=== PATIENT | female | born 1975 | race Caucasian/White ===

== ENCOUNTER → 2019-01-10 | Outpatient (CLI) | payer OTHER | LOC: MHCPAIN 09:13 | DX: G89.29 Other chronic pain (principal); M47.817 Spondylosis without myelopathy or radiculopathy, lumbosacral region; M54.16 Radiculopathy, lumbar region; M53.3 Sacrococcygeal disorders, not elsewhere classified | CPT/HCPCS: G0463 ==

== ENCOUNTER → 2019-02-27 | Outpatient (CLI) | payer OTHER ==
[~2019-02-27] MED LIST: EFFEXOR-XR150 MG PO; INDERAL40 MG PO; PRILOSEC 20MG20 MG PO; PROAIR HFA0.09 MG/AC IH; TYLENOL 325MG325 MG PO
== END ==
LOC: MHCPAIN 02-02 08:05
DX: M51.27 Other intervertebral disc displacement, lumbosacral region (principal)
CPT/HCPCS: J1100; Q9967

== ENCOUNTER → 2019-03-14 | Outpatient (CLI) | payer OTHER | LOC: MHCPAIN 07:43 | DX: G89.29 Other chronic pain (principal); M54.16 Radiculopathy, lumbar region | CPT/HCPCS: G0463 ==

== ENCOUNTER 2019-03-17 12:52 | Inpatient (IN) | payer OTHER ==
[~2019-03-17] VITALS: Ht 172.7 cm; Wt 118.2 kg
[2019-04-12] VITALS (12 sets, daily range): BP systolic 127–148; BP diastolic 66–84; PULSE 84–99; TEMP 97.9–98.3
--- NOTE | 2019-04-12 10:35 | NUR ---
Pt arrived via ambulation with spouse. Pt brought CPAP from home. A&O. VSS-documented. Verbalized understanding of surgery, consent obtained. Assessment documented. IVF infusing to 20g in left hand. Side rails up. Call light in reach. Pts spouse and parents present in room. Denies questions or concerns.
[2019-04-12] MEDS ORDERED: INDERAL40 MG PO (11:00)
[2019-04-12] MEDS ORDERED: EFFEXOR-XR150 MG PO (11:01)
[2019-04-12] MEDS ORDERED: PRILOSEC 20MG20 MG PO (11:01)
[2019-04-12] MEDS ORDERED: PROAIR HFA0.09 MG/AC IH (11:02)
[2019-04-12] MEDS ORDERED: TYLENOL 325MG325 MG PO (11:03)
--- NOTE | 2019-04-12 11:27 | NUR ---
Pt updated on wait time received from April, [employer] MANAGER from Dr Cool. Pt denied needs or concerns. Family in room visiting.
--- NOTE | 2019-04-12 13:42 | NUR ---
Pt resting in bed with family present to visit. IVF running per orders to IV without redness or infiltration. Denies needs or complaints. Side rails up and call light in reach.
--- NOTE | 2019-04-12 14:05 | NUR ---
Pt taken via cart to OR by MILA Chen. Belongings to PACU as pt will not return to outpatient surgery unit.
--- NOTE | 2019-04-12 19:24 | NUR ---
Patient to room 348 post op. Report from pacu nurse. Patient family at bedside. Robotic lap site x5, bandaids x4 and gauze x1. Ivf. Tylenol per [facility]AS protocol. Scds ble. Vss on O2. Bedside report to Sintia Burroughs
--- NOTE | 2019-04-12 21:00 | NUR ---
Patient assisted to bathroom, gait steady, voids and has small loose stool at this time. IVF to left hand resumed. Denies nausea or pain at this time. Has 5 lap sites, D/I.
--- NOTE | 2019-04-13 00:30 | NUR ---
Pt has CPAP on. Denies concerns.
[2019-04-13 04:00] VITALS: BP 106/54; PULSE 91; TEMP 98
--- NOTE | 2019-04-13 04:33 | NUR ---
PATIENT ASSISTED TO BATHROOM, MEDICATED WITH TRAMADOL 100MG PO FOR PAIN 7/10 TO ABDOMEN. BACK TO BED WITH MILD SHORTNESS OF BREATH.
--- NOTE | 2019-04-13 06:30 | NUR ---
Up to chair at bedside. Reports good relief with Tramadol. Encouraged oral intake. IVF continue to left hand without redness or swelling.
[2019-04-13 07:07] LABS: HEMATOCRIT 39.6 % (37.0-47.0); HEMOGLOBIN 13.1 g/dl (12.5-16.0)
[2019-04-13 07:22] LABS: CALCIUM 8.9 mg/dL (8.4-10.2); CREATININE, serum 0.7 (0.52-1.25); MAGNESIUM 1.9 mg/dL (1.6-2.3); PHOSPHOROUS 3.9 mg/dL (2.5-4.5); POTASSIUM 3.8 mmol/L (3.4-5.0)
--- NOTE | 2019-04-13 08:00 | NUR ---
Patient in bed resting. Alert and oriented x 3. Shift assessment complete. States soreness to abdomen, lap sites with edges well approximated. Spouse at bedside. Fluids infusing per orders. Encouraged ambulation. Denies further needs at this time. States she did have a BM this AM, not bloody per patient.
[2019-04-13 08:26] VITALS: BP 113/60; PULSE 95; TEMP 98.7
--- NOTE | 2019-04-13 11:19 | NUR ---
MAO met with the patient and her , Javad (ph#[phone]), to discuss discharge plan. The patient lives in [place] with her and son. She reports independence with ADLs and has a CPAP. The patient's primary care provider is Linda Ritchie PA-C and she receives her medications at [facility]. She reports no difficulties obtaining her meds. The patient does not have advanced directives completed, but she was interested in obtaining a form for DPOA-HC. MAO provided. The patient plans to return home with her family upon discharge. No additional needs at this time.
[2019-04-13 12:57] VITALS: BP 119/56; PULSE 88; TEMP 97.8
--- NOTE | 2019-04-13 13:40 | NUR ---
Patient called out to nurses station requests pain medication for pain 5/10 after ambulating. Medications given per orders.
--- NOTE | 2019-04-13 15:40 | NUR ---
Contacted Dr. Bran, patient tolerating diet without difficulties, would like to go home. Discharge orders entered. Denies further needs.
--- NOTE | 2019-04-13 16:30 | NUR ---
Discharge education provided to patient and spouse. Patient educated on signs and symptoms of infection. Educated on when to call provider and follow up appointment. All questions answered. INT discontinued, catheter tip intact. Denies further needs at this time. Patient ambulated out with spouse and staff.
== END 2019-04-13 16:30 | disposition home or self-care (01) | DRG 331 ==
LOC: INPTSU 04-12 09:17 → SURG 04-12 09:17
PROVIDERS: ADMIT Surgery
PROC: 8E0W4CZ Robotic Assisted Procedure of Trunk Region, Percutaneous Endoscopic Approach (ICD-10-PCS; 2019-04-12)
PROC: 0DTH4ZZ Resection of Cecum, Percutaneous Endoscopic Approach (ICD-10-PCS; principal; 2019-04-12 12:00)
DX: K56.1 Intussusception (principal); M19.90 Unspecified osteoarthritis, unspecified site; G43.909 Migraine, unspecified, not intractable, without status migrainosus
CPT/HCPCS: A4314; A9284; J1100; J1650; J1885; J2250; J2405; J2704; J3010; J7120

== ENCOUNTER → 2020-12-31 | Outpatient (CLI) | payer OTHER ==
[~2020-12-31] MED LIST changes: +ATIVAN 0.50.5 MG/TAB PO; +NORCO 325 MG-51 TAB PO; +TYLENOL 500MG500 MG PO
== END ==
LOC: MC.RAD 13:57
DX: Z98.890 Other specified postprocedural states (principal); C50.411 Malignant neoplasm of upper-outer quadrant of right female breast
CPT/HCPCS: A9541; C1769

== ENCOUNTER 2021-01-01 09:44 | Day surgery (SDC) | payer OTHER ==
[~2021-01-01] VITALS: Ht 171.4 cm; Wt 124.5 kg
[~2021-01-01 09:44] MED LIST changes: -ATIVAN 0.50.5 MG/TAB PO; -NORCO 325 MG-51 TAB PO; -TYLENOL 500MG500 MG PO
[2021-01-01] MEDS ORDERED: INDERAL40 MG PO (11:28)
[2021-01-01] MEDS ORDERED: EFFEXOR-XR150 MG PO (11:28)
[2021-01-01] MEDS ORDERED: TYLENOL 500MG500 MG PO (11:28)
[2021-01-01] MEDS ORDERED: PRILOSEC 20MG20 MG PO (11:29)
[2021-01-01] MEDS ORDERED: ATIVAN 0.50.5 MG/TAB PO (11:29)
[2021-01-01 11:43] VITALS: BP 130/63; PULSE 64; TEMP 99.4
[2021-01-01] MEDS ORDERED: NORCO 325 MG-51 TAB PO (16:36)
[2021-01-01 17:15] VITALS: BP 122/61; PULSE 92; TEMP 98
--- NOTE | 2021-01-01 17:15 | NUR ---
Pt returns to [facility] from PACU, drowsy but awakens easily and denies nausea, pain manageable at this time. VSS. Room air will monitor with removal of oxygen. at bedside. Pt tolerating water well, will provide muffin per her request.
[2021-01-01 17:30] VITALS: BP 124/57; PULSE 82
--- NOTE | 2021-01-01 17:30 | NUR ---
Pt tolerates a muffin well, no nausea. [place] given per orders. VSS. Report given to MILA Jimenez. Call light in reach. [place] dressing clean and dry.
[2021-01-01 17:40] VITALS: TEMP 98.1
[2021-01-01 17:42] VITALS: BP 119/54; PULSE 92
--- NOTE | 2021-01-01 18:18 | NUR ---
1803 Pt ambulates to the restroom with RN assist. Pt voids and returns to [facility] [place] [facility] with RN assist. Pt voices that she's ready for discharge. 1813 Discharge instructions given to pt and . All questions answered to their satisfaction. Handed to them is discharge information. 1818 Pt transferred out of hospital via wheelchair and this RN to private vehicle driven by .
== END 2021-01-01 18:18 | disposition home or self-care (01) ==
LOC: SDCO 09:44
DX: C50.411 Malignant neoplasm of upper-outer quadrant of right female breast (principal); G47.30 Sleep apnea, unspecified; K21.9 Gastro-esophageal reflux disease without esophagitis; E78.00 Pure hypercholesterolemia, unspecified; K58.9 Irritable bowel syndrome, unspecified; G43.909 Migraine, unspecified, not intractable, without status migrainosus; G47.33 Obstructive sleep apnea (adult) (pediatric); M19.90 Unspecified osteoarthritis, unspecified site; M54.9 Dorsalgia, unspecified; F32.9 Major depressive disorder, single episode, unspecified; F41.9 Anxiety disorder, unspecified; Z79.899 Other long term (current) drug therapy; Z99.89 Dependence on other enabling machines and devices; Z80.42 Family history of malignant neoplasm of prostate; Z82.49 Family history of ischemic heart disease and other diseases of the circulatory system; Z80.3 Family history of malignant neoplasm of breast; Z80.49 Family history of malignant neoplasm of other genital organs
CPT/HCPCS: A4648; J0690; J1100; J2250; J2405; J2704; J2795; J3010; J7120; Q9968